=== PATIENT | female | born 1990 | race Caucasian/White ===

== ENCOUNTER 2017-01-20 19:33 | Emergency (ER) | payer MEDICAID ==
[2017-01-20 19:34] VITALS: BMI 30.1
[2017-01-20 19:43] VITALS: TEMP 98.4
--- NOTE | 2017-01-20 19:52 | ED PDOC ---
Arrival/HPI - General Chief Complaint: Trauma Time Seen by Provider: 01/20/17 19:45 Historian: Patient - History of Present Illness Narrative History of Present Illness (Text): 01/20/17 19:50 26 year old female, no pmh, penicillin allergy, last tetanus under 2 years ago, complaining of lt. knee and chandler pain x 2 hours. Pt. stated that she was walking down, accidentally fall and scrapped the lt. anterior knee and chandler region, no ankle or foot pain, no night sweat, no dizziness, no other medical or psychological complaints. Past Medical History - Provider Review Nursing Documentation Reviewed: Yes - Past History Past History: No Previous - Infectious Disease Hx of Infectious Diseases: None - Tetanus Immunization Tetanus Immunization: Unknown - Cardiac Hx Cardiac Disorders: No - Pulmonary Hx Asthma: Yes - Neurological Hx Neurological Disorder: No - HEENT Hx HEENT Disorder: No - Renal Hx Renal Disorder: No - Endocrine/Metabolic Hx Endocrine Disorders: No - Hematological/Oncological Hx Blood Disorders: No - Integumentary Hx Eczema: Yes - Musculoskeletal/Rheumatological Hx Musculoskeletal Disorders: No - Gastrointestinal Hx Gastrointestinal Disorders: No - Genitourinary/Gynecological Hx Genitourinary Disorders: No - Psychiatric Hx Psychophysiologic Disorder: No Hx Depression: No Hx Emotional Abuse: No Hx Physical Abuse: No Hx Substance Use: No - Past Surgical History Past Surgical History: No Previous - Suicidal Assessment Feels Threatened In Home Enviroment: No Family/Social History - Physician Review Nursing Documentation Reviewed: Yes Family/Social History: Unknown Family HX Smoking Status: Never Smoked Hx Alcohol Use: Yes Hx Substance Use: No Hx Substance Use Treatment: No Allergies/Home Meds Allergies/Adverse Reactions: Allergies Penicillins Allergy (Verified 01/20/17 19:37) RASH pcn Allergy (Uncoded 10/17/15 07:32) RASH Review of Systems - Review of Systems Constitutional: absent: Fatigue, Fevers Eyes: absent: Vision Changes ENT: absent: Hearing Changes Respiratory: absent: Cough Cardiovascular: absent: Chest Pain Gastrointestinal: absent: Abdominal Pain, Nausea, Vomiting Musculoskeletal: Arthralgias, Myalgias. absent: Back Pain, Neck Pain, Joint Swelling Skin: Other (abrasion). absent: Rash, Pruritis, Skin Lesions, Laceration, Abscess, Ulcer, Cellulitis Neurological: absent: Headache, Dizziness, Focal Weakness, Gait Changes Physical Exam Vital Signs Reviewed: Yes Vital Signs Temp Pulse Resp BP Pulse Ox 01/20/17 20:58 82 18 118/70 99 01/20/17 19:42 98.4 F 99 H 21 135/89 98 Temperature: Afebrile Blood Pressure: Normal Pulse: Regular Respiratory Rate: Normal Appearance: Positive for: Well-Appearing, Non-Toxic, Uncomfortable Pain Distress: Moderate Mental Status: Positive for: Alert and Oriented X 3 - Systems Exam Head: Present: Atraumatic, Normocephalic Pupils: Present: PERRL Extroacular Muscles: Present: EOMI Conjunctiva: Present: Normal Mouth: Present: Moist Mucous Membranes Neck: Present: Normal Range of Motion Respiratory/Chest: Present: Clear to Auscultation, Good Air Exchange. No: Respiratory Distress, Accessory Muscle Use Cardiovascular: Present: Regular Rate and Rhythm, Normal S1, S2. No: Murmurs Abdomen: Present: Normal Bowel Sounds. No: Tenderness, Distention, Peritoneal Signs Back: Present: Normal Inspection Upper Extremity: Present: Normal Inspection. No: Cyanosis, Edema Lower Extremity: Present: Normal Inspection, Other (Lt. lower extremity: +ttp on the mid anterior tibial region and anterior patellar region with mild superficial abrasion, no laceration, negative sang and robin signs, FROM without limitation, sensation intact, motor 5/5, +DPPT pulses, capillary refill < 2 seconds, neurovasuclar intact. ). No: Edema Neurological: Present: GCS=15, CN II-XII Intact, Speech Normal Skin: Present: Warm, Dry, Normal Color. No: Rashes Psychiatric: Present: Alert, Oriented x 3, Normal Insight, Normal Concentration Medical Decision Making ED Course and Treatment: 01/20/17 19:53 -xrays -ice pack -tylenol -wound irrigate with normal saline, clean with betadine, bacitracin and gauze dressing. 01/20/17 20:37 -xrays show no fracture or dislocation but there is mild soft tissue swelling, damion wrap applied with crutches given, will discharge home. -Discharge home with damion wrap, crutches, motrin, bacitracin ointment, ice compression, weight bearing as tolerated, follow up with your own pmd and orthopedic within 2 days, return to the ER for any new or worsening signs or symptoms. - RAD Interpretation Radiology Orders: 01/20/17 19:48 KNEE WITH PATELLA LEFT 3 VIEW [RAD] Stat TIBIA FIBULA LEFT [RAD] Stat Lt. tibia/knee xrays: no fracture Oxygen Furnace Operator: Radiologist - Medication Orders Current Medication Orders: Discontinued Medications Acetaminophen (Tylenol 325mg Tab) 650 mg PO STAT STA Stop: 01/20/17 19:49 Last Admin: 01/20/17 20:05 Dose: 650 mg - PA / TELEMETRY NURSE / Resident Statement MD/DO has reviewed & agrees with the documentation as recorded. Disposition/Present on Arrival - Present on Arrival Any Indicators Present on Arrival: No History of DVT/PE: No History of Uncontrolled Diabetes: No Urinary Catheter: No History of Decub. Ulcer: No History Surgical Site Infection Following: None - Disposition Have Diagnosis and Disposition been Completed?: Yes Diagnosis: Accidental fall, Contusion, Abrasion Disposition: HOME/ ROUTINE Disposition Time: 20:39 Patient Plan: Discharge Condition: IMPROVED Additional Instructions: Discharge home with damion wrap, crutches, motrin, bacitracin ointment, ice compression, weight bearing as tolerated, follow up with your own pmd and orthopedic within 2 days, return to the ER for any new or worsening signs or symptoms. Prescriptions: Bacitracin Ointment [Bacitracin] 1 appful TOP BID #15 g Ibuprofen [Motrin] 600 mg PO QID PRN #24 tab PRN Reason: Other Referrals: PCP,KATLIN [Primary Care Provider] - Follow up with primary Troy Gill MD [Staff Provider] - Follow up with primary [facility] [place] [Outside] - Follow up with primary Forms: WORK NOTE
[2017-01-20 20:59] VITALS: BP 118/70; PULSE 82; RESP 18; O2SAT 99
--- NOTE | 2017-01-21 08:54 | RAD ---
Left tibia fibula History: Fall injury. Findings: Two views of the left tibia and fibula demonstrates no evidence displaced fracture. Impression: No evidence of displaced fracture.
--- NOTE | 2017-01-21 09:06 | RAD ---
PROCEDURE: Left Knee Radiographs. HISTORY: Pain. COMPARISON: None. FINDINGS: BONES: Normal. No fracture. JOINTS: Normal. No osteoarthritis. JOINT EFFUSION: Mild suprapatellar joint effusion. OTHER FINDINGS: None. IMPRESSION: No definite fracture.
== END 2017-01-20 20:59 | disposition home or self-care (01) ==
LOC: ED 19:33
DX: S80.12XA Contusion of left lower leg, initial encounter (principal); S80.812A Abrasion, left lower leg, initial encounter; W19.XXXA Unspecified fall, initial encounter